=== PATIENT | female | born 1980 | race Caucasian/White ===

== ENCOUNTER → 2021-05-16 | Outpatient (CLI) | payer OTHER ==
[2021-05-17 15:11] LABS: HPV 16 Negative (Negative); HPV 18 Negative (Negative); HPV OTHER HR TYPES Negative (Negative)
== END | disposition home or self-care (01) ==
LOC: LAB 10:05 → LAB SHORT 10:05
PROVIDERS: Obstetrics & Gynecology
DX: Z01.419 Encounter for gynecological examination (general) (routine) without abnormal findings (principal)

== ENCOUNTER 2024-01-23 06:38 | Day surgery (SDC) | payer OTHER ==
[~2024-01-23] VITALS: Ht 165.1 cm; Wt 100.0 kg
[2024-01-23] VITALS (11 sets, daily range): BP systolic 124–153; BP diastolic 67–79
[~2024-01-23 06:38] MED LIST: DESOGESTREL-EE1 EACH PO; FERSU300 PO; MOTRIN IB200 MG PO; ONDA4 PO; OXYC10TA19 PO; Percocet 5-3251 EACH PO
[2024-01-23] MEDS ORDERED: CeFAZolin Sodium 2,000 MG in NS 100 ML IV SCH (06:55)
[2024-01-23] MEDS ORDERED: Lactated Ringer's 1,000 ML IV SCH (06:55)
--- NOTE | 2024-01-23 07:15 | NUR ---
Ambulatory in Day Surgery History, Chart, Medications and Allergies reviewed before start of procedure.Lungs clear T/O to Auscultation. Patient confirms NPO status and agrees with scheduled surgery. Patient reports completing Chlorhexadine shower X2 prior to admission to hospital.Surgical site prepped with 2% Chlorhexidine cloth wipe X2. Patient States Post-Procedure ride home has been arranged.
[2024-01-23] MEDS ORDERED: FentaNYL Citrate 50 MCG/ML 2 ML Injection ONE (07:38)
[2024-01-23] MEDS ORDERED: propofoL 20 ML IV ONE (07:38)
[2024-01-23] MEDS ORDERED: Lidocaine HCl 2% 20 ML MDV ONE (07:38)
[2024-01-23] MEDS ORDERED: Midazolam HCl 1MG / ML 2ML Vial IV ONE (07:40)
[2024-01-23] MEDS ORDERED: Bupivacaine 0.5% HCl 5 MG/ML 30MLVIAL ONE (07:44)
[2024-01-23] MEDS ORDERED: Ketorolac Tromethamine 30mg Vial ONE (09:00)
[2024-01-23] MEDS ORDERED: Ondansetron HCl 2 MG / ML 2ML Vial ONE (09:00)
[2024-01-23] MEDS ORDERED: Dexamethasone Sod Phos 10 MG/ML 1ML VIAL ONE (09:00)
[2024-01-23] MEDS ORDERED: Rocuronium Bromide 10 MG/ML 5ML Injection IV ONE (09:01)
[2024-01-23] MEDS ORDERED: SuccINYLCHOLINE Chloride 100 MG/5 ML 5MLSYR ONE (09:01)
[2024-01-23] MEDS ORDERED: Sugammadex Sodium 200 MG/2ML SDV (100 MG/ML) ONE (09:26)
[2024-01-23] MEDS ORDERED: HYDROcodone 5-APAP 325 TAB PO PRN (09:55)
--- NOTE | 2024-01-23 10:05 | NUR ---
PT TO DAY SURGERY STEP DOWN FROM PACU; BEDSIDE REPORT RECEIVED. PT IS AWAKE, ALERT AND ORIENTED; ABLE TO MOVE SELF IN BED. VSS. PT DENIES PAIN. PT REQUESTING PO FLUIDS. PT HAS STERI STRIP TO RIGHT LOWER NECK THAT IS C/D/I AND PEDRO PABLO DRAIN THAT IS DRAINING SEROSANGUINEOUS FLUID.
--- NOTE | 2024-01-23 10:27 | NUR ---
PT TOLERATING PO FLUIDS. ICE PACK TO INCISION. INCISION REMAINS C/D/I. PEDRO PABLO DRAINAGE REMAINS SAME AMOUNT.
--- NOTE | 2024-01-23 10:48 | NUR ---
Discharge instructions reviewed with patient. Patient verbalizes understanding. Copy given to patient to take home. PEDRO PABLO instructions given and pt shown how to drain and record. Patient States Post-Procedure ride home has been arranged.
--- NOTE | 2024-01-23 11:52 | NUR ---
Patient up to Ambulate independently. Gait steady.
--- NOTE | 2024-01-23 11:57 | NUR ---
Discharged via wheelchair to private car for ride home.
== END 2024-01-23 11:58 | disposition home or self-care (01) ==
LOC: ORSCMMR 06:38
PROVIDERS: Surgery
PROC: 0WB60ZX Excision of Neck, Open Approach, Diagnostic (ICD-10-PCS; principal; 2024-01-23 08:00)
DX: D17.0 Benign lipomatous neoplasm of skin and subcutaneous tissue of head, face and neck (principal); Z79.899 Other long term (current) drug therapy
CPT/HCPCS: 88304; J0330; J0690; J1100; J1885; J2250; J2405; J2704; J3010; J7120